=== PATIENT | male | born 1945 | race Caucasian/White ===

== ENCOUNTER 2018-12-18 22:17 | Emergency (ER) | payer MEDICARE, MEDICAID ==
[~2018-12-18] VITALS: Ht 180.3 cm; Wt 90.9 kg
[2018-12-18] MEDS ORDERED: ATOR40TA28 PO (22:41)
[2018-12-19] MEDS ORDERED: PredniSONE 20 MG TABLET PO ONE (02:00)
[2018-12-19] MEDS ORDERED: IPRATROPIUM BROMIDE 0.5 MG/2.5 ML NEB SOLUTION NEB ONE (02:00)
[2018-12-19] MEDS ORDERED: ALBUTEROL SULFATE 5 MG/ML 20 ML NEB SOLN [BULK] NEB ONE (02:00)
[2018-12-19 02:33] LABS: BASOPHILS % (AUTO) 0.6 % (0.0-2.0); EOSINOPHILS % (AUTO) 0.2 % (1.0-6.0); HEMATOCRIT 45.7 % (41-53); HEMOGLOBIN 14.9 g/dL (13.5-17.5); LYMPHOCYTES # (AUTO) 1.8 K/uL (1.0-4.8); MEAN CORPUSCULAR HEMOGLOBIN 30.1 pg (26.0-34.0); MEAN CORPUSCULAR HGB CONC 32.7 G/dL (31.0-37.0); MEAN CORPUSCULAR VOLUME 92 fL (80-100); MONOCYTES # (AUTO) 0.6 K/uL (0.1-1.0); MONOCYTES % (AUTO) 6.9 % (2.0-9.0); NEUTROPHILS # (AUTO) 5.8 K/uL (1.8-7.7); NEUTROPHILS % (AUTO) 70.3 % (40.0-70.0); PLATELET COUNT (AUTO) 317 K/uL (150-450); RED BLOOD CELL COUNT(AUTO) 4.96 MIL/uL (4.50-5.90)
[2018-12-19 02:41] LABS: ANION GAP 6 mmol/L (8-16); CALCIUM, TOTAL 8.7 mg/dL (8.8-10.5); CARBON DIOXIDE 28 mmol/L (22-29); CHLORIDE 104 mmol/L (98-107); GLUCOSE,RANDOM 120 mg/dL (70-110); POTASSIUM 3.8 mmol/L (3.5-5.1); SODIUM SERUM 138 mmol/L (136-145); UREA NITROGEN, BLOOD 14 mg/dL (7-18)
[2018-12-19 02:42] LABS: GLOMERULAR FILTR. RATE CALC > 60 mL/min (>60)
[2018-12-19 02:47] LABS: ALANINE AMINOTRANSFERASE 16 U/L (12-78); ALKALINE PHOSPHATASE 78 U/L (46-116); ASPARTATE AMINOTRANSFERASE 16 U/L (15-37); BILIRUBIN,TOTAL 0.4 mg/dL (0.1-1.0); LIPASE 55 U/L (73-393); TOTAL PROTEIN, SERUM 7.2 g/dL (6.4-8.2)
[2018-12-19 03:36] VITALS: BP 140/79
== END 2018-12-19 04:43 | disposition home or self-care (01) ==
LOC: EMS 22:18
DX: J44.1 Chronic obstructive pulmonary disease with (acute) exacerbation (principal); G89.29 Other chronic pain; I10 Essential (primary) hypertension; E78.00 Pure hypercholesterolemia, unspecified; F17.210 Nicotine dependence, cigarettes, uncomplicated; I25.2 Old myocardial infarction
CPT/HCPCS: 93005; 94640

== ENCOUNTER 2019-12-12 07:08 | Emergency (ER) | payer MEDICARE, OTHER ==
[~2019-12-12] VITALS: Ht 188 cm; Wt 81.8 kg
[~2019-12-12 07:08] MED LIST: ATOR40TA28 PO
[2019-12-12] MEDS ORDERED: ONDANSETRON HCL 4 MG/2 ML VIAL IVP ONE (07:45)
[2019-12-12] MEDS ORDERED: SODIUM CHLORIDE 0.9% 1,000 ML IV ONE (07:45)
[2019-12-12] MEDS ORDERED: LOPERAMIDE HCL 2 MG CAPSULE PO ONE (07:45)
[2019-12-12 08:10] LABS: BASOPHILS % (AUTO) 0.7 % (0.0-2.0); EOSINOPHILS % (AUTO) 2.2 % (1.0-6.0); HEMATOCRIT 47.3 % (41-53); HEMOGLOBIN 16.1 g/dL (13.5-17.5); LYMPHOCYTES # (AUTO) 2.4 K/uL (1.0-4.8); LYMPHOCYTES % (AUTO) 24.2 % (22.0-44.0); MEAN CORPUSCULAR HEMOGLOBIN 32.7 pg (26.0-34.0); MEAN CORPUSCULAR VOLUME 96 fL (80-100); MONOCYTES # (AUTO) 0.7 K/uL (0.1-1.0); MONOCYTES % (AUTO) 6.8 % (2.0-9.0); NEUTROPHILS # (AUTO) 6.5 K/uL (1.8-7.7); NEUTROPHILS % (AUTO) 66.1 % (40.0-70.0); PLATELET COUNT (AUTO) 275 K/uL (150-450); RED BLOOD CELL COUNT(AUTO) 4.92 MIL/uL (4.50-5.90); RED CELL DISTRIBUTION WIDTH 13.9 % (11.5-14.5)
[2019-12-12 08:21] LABS: ANION GAP 12 mmol/L (8-16); CALCIUM, TOTAL 9.1 mg/dL (8.8-10.5); CARBON DIOXIDE 24 mmol/L (22-29); CHLORIDE 105 mmol/L (98-107); CREATININE 0.66 mg/dL (0.60-1.30); GLUCOSE,RANDOM 104 mg/dL (70-110); POTASSIUM 3.8 mmol/L (3.5-5.1); SODIUM SERUM 141 mmol/L (136-145); UREA NITROGEN, BLOOD 12 mg/dL (7-18)
[2019-12-12 08:26] LABS: GLOMERULAR FILTR. RATE CALC > 60 mL/min (>60)
[2019-12-12 08:27] LABS: ALANINE AMINOTRANSFERASE 22 U/L (12-78); ALBUMIN 3.1 g/dL (3.4-5.0); ALKALINE PHOSPHATASE 80 U/L (46-116); ASPARTATE AMINOTRANSFERASE 13 U/L (15-37); BILIRUBIN,TOTAL 0.5 mg/dL (0.1-1.0); TOTAL PROTEIN, SERUM 7.4 g/dL (6.4-8.2)
[2019-12-12 08:56] VITALS: BP 137/88
[2019-12-12] MEDS ORDERED: ACETAMINOPHEN 500 MG TABLET PO ONE (09:00)
[2019-12-12] MEDS ORDERED: NICOTINE 21 MG/24 HOUR PATCH TD ONE (10:30)
== END 2019-12-12 14:24 | disposition home or self-care (01) ==
LOC: EMS 07:11
DX: S50.311A Abrasion of right elbow, initial encounter (principal); R19.7 Diarrhea, unspecified; R11.2 Nausea with vomiting, unspecified; R05 Cough; J44.9 Chronic obstructive pulmonary disease, unspecified; E78.00 Pure hypercholesterolemia, unspecified; I10 Essential (primary) hypertension; I25.2 Old myocardial infarction; F17.210 Nicotine dependence, cigarettes, uncomplicated; F12.90 Cannabis use, unspecified, uncomplicated; Z20.828 Contact with and (suspected) exposure to other viral communicable diseases; W19.XXXA Unspecified fall, initial encounter; Y93.89 Activity, other specified; Y92.89 Other specified places as the place of occurrence of the external cause; Y99.8 Other external cause status
CPT/HCPCS: 36415; 71045; 80053; 85025; 96361; 96374; 99284; J2405; J7030; U0003

== ENCOUNTER 2021-07-01 15:13 | Inpatient (IN) | payer MEDICARE, MEDICAID ==
[~2021-07-01] VITALS: Ht 157.5 cm; Wt 68.7 kg
[2021-07-01] MEDS ORDERED: ASPI81TA87 PO (16:04)
[2021-07-01] MEDS ORDERED: BISA10SU11 PR (16:04)
[2021-07-01] MEDS ORDERED: ALBU8HFA IH (16:04)
[2021-07-01] MEDS ORDERED: BUDE0.5A NEB (16:04)
[2021-07-01] MEDS ORDERED: TUBE5VIA TD (16:04)
[2021-07-01] MEDS ORDERED: ENOX40DI9 SQ (16:04)
[2021-07-01] MEDS ORDERED: FORM20VI4 IH (16:08)
[2021-07-01] MEDS ORDERED: FURO20 PO (16:08)
[2021-07-01] MEDS ORDERED: OLAN10TA74 PO (16:08)
[2021-07-01 16:12] LABS: COVID AG,FIA SOURCE NASAL SWAB
[2021-07-01 17:00] LABS: BASOPHILS % (AUTO) 0.9 % (0.0-2.0); EOSINOPHILS % (AUTO) 0.1 % (1.0-6.0); HEMATOCRIT 38.1 % (41-53); HEMOGLOBIN 12.9 g/dL (13.5-17.5); LYMPHOCYTES # (AUTO) 1.9 K/uL (1.0-4.8); LYMPHOCYTES % (AUTO) 46.1 % (22.0-44.0); MEAN CORPUSCULAR HEMOGLOBIN 31.4 pg (26.0-34.0); MEAN CORPUSCULAR HGB CONC 33.8 G/dL (31.0-37.0); MEAN CORPUSCULAR VOLUME 93 fL (80-100); MONOCYTES # (AUTO) 0.7 K/uL (0.1-1.0); MONOCYTES % (AUTO) 16.7 % (2.0-9.0); NEUTROPHILS # (AUTO) 1.5 K/uL (1.8-7.7); NEUTROPHILS % (AUTO) 36.2 % (40.0-70.0); PLATELET COUNT (AUTO) 192 K/uL (150-450); RED CELL DISTRIBUTION WIDTH 14.9 % (11.5-14.5)
[2021-07-01 17:30] LABS: ANION GAP 6 mmol/L (8-16); CARBON DIOXIDE 28 mmol/L (22-29); CHLORIDE 104 mmol/L (98-107); CREATININE 0.79 mg/dL (0.60-1.30); GLUCOSE,RANDOM 81 mg/dL (70-110); POTASSIUM 4.4 mmol/L (3.5-5.1); SODIUM SERUM 138 mmol/L (136-145); UREA NITROGEN, BLOOD 18 mg/dL (7-18)
[2021-07-01 17:40] LABS: ALANINE AMINOTRANSFERASE 21 U/L (12-78); ALBUMIN 2.6 g/dL (3.4-5.0); ALKALINE PHOSPHATASE 48 U/L (46-116); ASPARTATE AMINOTRANSFERASE 21 U/L (15-37); BILIRUBIN,TOTAL 0.2 mg/dL (0.1-1.0); TOTAL PROTEIN, SERUM 6.6 g/dL (6.4-8.2)
[2021-07-01 17:41] LABS: GLOMERULAR FILTR. RATE CALC > 60 mL/min (>60)
[2021-07-01 17:52] LABS: INFLUENZA TYPE A NEGATIVE FOR TYPE A (NEGATIVE); INFLUENZA TYPE B NEGATIVE FOR TYPE B (NEGATIVE)
[2021-07-01 18:35] LABS: B-TYPE NATRIURETIC PEPTIDE 74 pg/mL (0-100)
[2021-07-01] MEDS ORDERED: DEXAMETHASONE SOD PHOS 4 MG/ML 5 ML VIAL IVP ONE (18:45)
[2021-07-01] MEDS ORDERED: OxyCODONE HCL/ACETAMINOPHEN 5-325 MG TABLET PO PRN (18:45)
[2021-07-01] MEDS ORDERED: ONDANSETRON HCL 4 MG/2 ML VIAL IVP PRN (18:45)
[2021-07-01] MEDS ORDERED: 0.9% SODIUM CHLORIDE 10 ML SYRINGE IVP PRN (18:45)
[2021-07-01] MEDS ORDERED: ACETAMINOPHEN 325 MG TABLET PO PRN (18:45)
[2021-07-01 21:14] VITALS: BP 94/49
[2021-07-02 04:45] VITALS: BP 99/56
[2021-07-02 08:04] VITALS: BP 92/55
[2021-07-02] MEDS ORDERED: MORPHINE SULFATE 2 MG/ML SYRINGE IVP PRN (09:00)
[2021-07-02] MEDS: FUROSEMIDE 20 MG TABLET PO SCH (09:00)
[2021-07-02] MEDS ORDERED: MAGNESIUM HYDROXIDE SUSPENSION 30 ML UDCUP PO PRN (09:00)
[2021-07-02] MEDS ORDERED: IPRATROPIUM BROMIDE 0.5 MG/2.5 ML NEB SOLUTION NEB PRN (09:00)
[2021-07-02] MEDS ORDERED: REMDESIVIR 200 MG in SODIUM CHLORIDE 0.9% 250 ML IV ONE (09:00)
[2021-07-02] MEDS ORDERED: ZOLPIDEM TARTRATE 5 MG TABLET PO PRN (09:00)
[2021-07-02] MEDS ORDERED: ONDANSETRON HCL 4 MG/2 ML VIAL IVP PRN (09:00)
[2021-07-02] MEDS ORDERED: DEXAMETHASONE SOD PHOS 4 MG/ML VIAL IVP ONE (09:00)
[2021-07-02] MEDS ORDERED: ALBUTEROL SULFATE 2.5 MG/0.5 ML NEB SOLUTION NEB PRN (09:00)
[2021-07-02] MEDS ORDERED: HYDROCODONE/ACETAMINOPHEN 5-325 MG TABLET PO PRN (09:00)
[2021-07-02] MEDS ORDERED: BISACODYL 10 MG RECTAL RECTAL SUPPOSITORY PR PRN (09:00)
[2021-07-02] MEDS: DEXAMETHASONE SOD PHOS 4 MG/ML VIAL IVP SCH (09:00)
[2021-07-02] MEDS ORDERED: ASCO500 PO (09:22)
[2021-07-02] MEDS ORDERED: NICO-803 TD (09:22)
[2021-07-02] MEDS ORDERED: ENOX40DI9 SQ (09:22)
[2021-07-02] MEDS ORDERED: PANT-31 PO (09:22)
[2021-07-02] MEDS ORDERED: ASPI-1450 PO (09:22)
[2021-07-02] MEDS ORDERED: MULT-248 PO (09:22)
[2021-07-02] MEDS ORDERED: OLAN10TA74 PO (09:22)
[2021-07-02] MEDS ORDERED: METO25 PO (09:22)
[2021-07-02] MEDS ORDERED: CHOL-35 PO (09:22)
[2021-07-02] MEDS ORDERED: [UNRECOGNIZED DRUG - CODE] PO (09:22)
[2021-07-02] MEDS ORDERED: FURO20 PO (09:22)
[2021-07-02] MEDS ORDERED: SUCR1TAB28 PO (09:22)
[2021-07-02] MEDS ORDERED: SODIUM CHLORIDE 0.9% 500 ML IV ONE (10:55)
[2021-07-02] MEDS: OLANZapine 10 MG TABLET PO SCH ×2 (11:17→22:03)
[2021-07-02] MEDS: PANTOPRAZOLE SODIUM 40 MG/VIAL IVP SCH (11:17)
[2021-07-02] MEDS: ASPIRIN 81 MG DR TABLET PO SCH (11:17)
[2021-07-02] MEDS: ATORVASTATIN CALCIUM 40 MG TABLET PO SCH (11:17)
[2021-07-02] MEDS: NICOTINE 21 MG/24 HOUR PATCH TD SCH (11:18)
[2021-07-02] MEDS ORDERED: HEPARIN SODIUM,PORCINE 5,000 UNITS/ML VIAL SQ SCH (16:00)
[2021-07-02 16:08] VITALS: BP 124/80
[2021-07-02 20:17] VITALS: BP 112/61
[2021-07-02] MEDS: HEPARIN SODIUM,PORCINE 5,000 UNITS/ML VIAL SQ SCH (22:03)
[2021-07-03 00:26] VITALS: BP 118/64
[2021-07-03] MEDS: ACETAMINOPHEN 325 MG TABLET PO PRN ×3 (03:06→20:42)
[2021-07-03 05:32] VITALS: BP 123/77
[2021-07-03 06:16] LABS: C-REACTIVE PROTEIN QUANT 1.05 mg/dL (0.00-0.30)
[2021-07-03 08:16] VITALS: BP 95/64
[2021-07-03] MEDS: HEPARIN SODIUM,PORCINE 5,000 UNITS/ML VIAL SQ SCH ×2 (08:57→15:46)
[2021-07-03] MEDS: PANTOPRAZOLE SODIUM 40 MG/VIAL IVP SCH (08:57)
[2021-07-03] MEDS: OLANZapine 10 MG TABLET PO SCH ×2 (08:58→20:42)
[2021-07-03] MEDS: DEXAMETHASONE SOD PHOS 4 MG/ML VIAL IVP SCH (08:58)
[2021-07-03] MEDS: FUROSEMIDE 20 MG TABLET PO SCH (08:58)
[2021-07-03] MEDS: REMDESIVIR 100 MG in SODIUM CHLORIDE 0.9% 250 ML IV SCH (09:04)
[2021-07-03] MEDS: NICOTINE 21 MG/24 HOUR PATCH TD SCH (09:06)
[2021-07-03] MEDS: ASPIRIN 81 MG DR TABLET PO SCH (09:07)
[2021-07-03] MEDS: ATORVASTATIN CALCIUM 40 MG TABLET PO SCH (09:08)
[2021-07-03 16:04] VITALS: BP 116/65
[2021-07-03 19:47] VITALS: BP 113/66
[2021-07-04] MEDS: HEPARIN SODIUM,PORCINE 5,000 UNITS/ML VIAL SQ SCH ×3 (00:31→17:06)
[2021-07-04 04:35] VITALS: BP 116/59
[2021-07-04 06:53] LABS: C-REACTIVE PROTEIN QUANT 1.32 mg/dL (0.00-0.30)
[2021-07-04 07:33] VITALS: BP 90/67
[2021-07-04] MEDS: NICOTINE 21 MG/24 HOUR PATCH TD SCH (10:07)
[2021-07-04] MEDS: PANTOPRAZOLE SODIUM 40 MG/VIAL IVP SCH ×2 (10:07→13:08)
[2021-07-04] MEDS: OLANZapine 10 MG TABLET PO SCH (10:08)
[2021-07-04] MEDS: ASPIRIN 81 MG DR TABLET PO SCH (10:08)
[2021-07-04] MEDS: FUROSEMIDE 20 MG TABLET PO SCH (10:08)
[2021-07-04] MEDS: ATORVASTATIN CALCIUM 40 MG TABLET PO SCH (10:08)
[2021-07-04] MEDS ORDERED: LORazepam 2 MG/ML VIAL IVP ONE (11:15)
[2021-07-04] MEDS: REMDESIVIR 100 MG in SODIUM CHLORIDE 0.9% 250 ML IV SCH (13:07)
[2021-07-04] MEDS: DEXAMETHASONE SOD PHOS 4 MG/ML VIAL IVP SCH (13:07)
[2021-07-04 15:31] VITALS: BP 100/65
[2021-07-04 19:39] VITALS: BP 102/67
[2021-07-05] MEDS: HEPARIN SODIUM,PORCINE 5,000 UNITS/ML VIAL SQ SCH ×4 (00:14→23:42)
[2021-07-05 04:20] VITALS: BP 107/77
[2021-07-05] MEDS ORDERED: SODIUM CHLORIDE 0.9% 250 ML IV ONE (07:49)
[2021-07-05] MEDS: PANTOPRAZOLE SODIUM 40 MG/VIAL IVP SCH (08:05)
[2021-07-05] MEDS: ASPIRIN 81 MG DR TABLET PO SCH (08:06)
[2021-07-05] MEDS: FUROSEMIDE 20 MG TABLET PO SCH (08:06)
[2021-07-05] MEDS: DEXAMETHASONE SOD PHOS 4 MG/ML VIAL IVP SCH (08:06)
[2021-07-05] MEDS: NICOTINE 21 MG/24 HOUR PATCH TD SCH (08:06)
[2021-07-05] MEDS: ATORVASTATIN CALCIUM 40 MG TABLET PO SCH (08:06)
[2021-07-05 08:19] LABS: ALANINE AMINOTRANSFERASE 31 U/L (12-78); ALBUMIN 2.5 g/dL (3.4-5.0); ALKALINE PHOSPHATASE 52 U/L (46-116); ANION GAP 4 mmol/L (8-16); ASPARTATE AMINOTRANSFERASE 27 U/L (15-37); BILIRUBIN,TOTAL 0.2 mg/dL (0.1-1.0); C-REACTIVE PROTEIN QUANT 0.84 mg/dL (0.00-0.30); CALCIUM, TOTAL 8.7 mg/dL (8.8-10.5); CARBON DIOXIDE 29 mmol/L (22-29); CHLORIDE 106 mmol/L (98-107); CREATININE 0.56 mg/dL (0.60-1.30); FERRITIN 265 ng/mL (26-388); GLUCOSE,RANDOM 119 mg/dL (70-110); LACTATE DEHYDROGENASE 302 U/L (85-227); POTASSIUM 4.2 mmol/L (3.5-5.1); SODIUM SERUM 139 mmol/L (136-145); TOTAL PROTEIN, SERUM 6.7 g/dL (6.4-8.2); UREA NITROGEN, BLOOD 16 mg/dL (7-18)
[2021-07-05 08:21] LABS: GLOMERULAR FILTR. RATE CALC > 60 mL/min (>60)
[2021-07-05 08:23] VITALS: BP 150/90
[2021-07-05] MEDS: REMDESIVIR 100 MG in SODIUM CHLORIDE 0.9% 250 ML IV SCH (08:31)
[2021-07-05 16:05] VITALS: BP 121/78
[2021-07-05 21:01] VITALS: BP 123/71
[2021-07-05] MEDS: ACETAMINOPHEN 325 MG TABLET PO PRN (23:39)
[2021-07-06 04:10] VITALS: BP 120/63
[2021-07-06 07:31] LABS: ALANINE AMINOTRANSFERASE 59 U/L (12-78); ALBUMIN 2.6 g/dL (3.4-5.0); ALKALINE PHOSPHATASE 51 U/L (46-116); ANION GAP 3 mmol/L (8-16); ASPARTATE AMINOTRANSFERASE 49 U/L (15-37); BILIRUBIN,TOTAL 0.3 mg/dL (0.1-1.0); C-REACTIVE PROTEIN QUANT 0.43 mg/dL (0.00-0.30); CALCIUM, TOTAL 8.7 mg/dL (8.8-10.5); CARBON DIOXIDE 31 mmol/L (22-29); CHLORIDE 104 mmol/L (98-107); CREATININE 0.56 mg/dL (0.60-1.30); FERRITIN 296 ng/mL (26-388); GLUCOSE,RANDOM 93 mg/dL (70-110); LACTATE DEHYDROGENASE 290 U/L (85-227); POTASSIUM 3.6 mmol/L (3.5-5.1); SODIUM SERUM 138 mmol/L (136-145); TOTAL PROTEIN, SERUM 6.7 g/dL (6.4-8.2); UREA NITROGEN, BLOOD 19 mg/dL (7-18)
[2021-07-06 07:32] LABS: GLOMERULAR FILTR. RATE CALC > 60 mL/min (>60)
[2021-07-06] MEDS: ASPIRIN 81 MG DR TABLET PO SCH (08:39)
[2021-07-06] MEDS: DEXAMETHASONE SOD PHOS 4 MG/ML VIAL IVP SCH (08:40)
[2021-07-06] MEDS: NICOTINE 21 MG/24 HOUR PATCH TD SCH (08:40)
[2021-07-06] MEDS: FUROSEMIDE 20 MG TABLET PO SCH (08:40)
[2021-07-06] MEDS: PANTOPRAZOLE SODIUM 40 MG/VIAL IVP SCH (08:41)
[2021-07-06] MEDS: HEPARIN SODIUM,PORCINE 5,000 UNITS/ML VIAL SQ SCH (08:41)
[2021-07-06] MEDS: ATORVASTATIN CALCIUM 40 MG TABLET PO SCH (08:41)
[2021-07-06] MEDS: REMDESIVIR 100 MG in SODIUM CHLORIDE 0.9% 250 ML IV SCH (08:41)
[2021-07-06 09:01] VITALS: BP 127/98
[2021-07-06] MEDS: ACETAMINOPHEN 325 MG TABLET PO PRN ×2 (10:27→17:44)
[2021-07-06 16:13] VITALS: BP 101/58
[2021-07-06] MEDS ORDERED: ASPI-1450 PO (18:06)
[2021-07-06] MEDS ORDERED: DEXA4 PO (18:07)
[2021-07-06] MEDS ORDERED: APIX2.5T PO (18:08)
== END 2021-07-06 18:38 | DRG 177 ==
LOC: EMS 15:17 → 6N 20:45
PROVIDERS: ADMIT Hospitalist; ATTEND Hospitalist
PROC: XW033E5 Introduction of Remdesivir Anti-infective into Peripheral Vein, Percutaneous Approach, New Technology Group 5 (ICD-10-PCS; 2021-07-03)
PROC: 05HY33Z Insertion of Infusion Device into Upper Vein, Percutaneous Approach (ICD-10-PCS; principal; 2021-07-05)
PROC: B54MZZA Ultrasonography of Right Upper Extremity Veins, Guidance (ICD-10-PCS; 2021-07-05)
DX: U07.1 COVID-19 (principal); J96.01 Acute respiratory failure with hypoxia; J12.82 Pneumonia due to coronavirus disease 2019; E44.0 Moderate protein-calorie malnutrition; J44.9 Chronic obstructive pulmonary disease, unspecified; I10 Essential (primary) hypertension; E78.5 Hyperlipidemia, unspecified; E78.00 Pure hypercholesterolemia, unspecified; F99 Mental disorder, not otherwise specified; Z72.0 Tobacco use; Z95.1 Presence of aortocoronary bypass graft; Z79.82 Long term (current) use of aspirin; Z79.899 Other long term (current) drug therapy; Z79.01 Long term (current) use of anticoagulants; Z68.27 Body mass index [BMI] 27.0-27.9, adult; I25.2 Old myocardial infarction
CPT/HCPCS: 36245; 36569; 71045; 76937; 80053; 82728; 83615; 83880; 84484; 85025; 85379; 86140; 87804; 93005; 99291; C9113; J1100; J1644; J2060; J7040; J7050; Q9967; 36415-L1; 36415-TC; U0003